=== PATIENT | female | born 1935 | race African-American/Black ===

== ENCOUNTER 2016-11-25 13:20 | Inpatient (IN) | payer BC ==
--- NOTE | ~2016-11-25 | IDS ---
Interim Discharge Summary [facility] [address] [place]. [address] NAME: YOLANDA ROSS : 35 STATUS : ADM IN PAT#: [id number] AGE: 81 ADM/REG DATE : 11/25/16 MR#: [id number] REPORT SERV DATE: 11/29/16 DICTATED BY: MAYRA ORELLANA DATE: 11/29/16 REPORT STATUS : Draft TRANSCRIBED BY: EDIL DATE: 11/29/16 ADMISSION DATE: 11/25/2016 DISCHARGE DATE: Date of service provided from 11/26/2016 to 11/29/2016. CURRENT MEDICAL PROBLEMS: 1. Status post left hip fracture, status post surgery per Dr. Moreira. 2. Hypertension, controlled. 3. Diabetes type 2, controlled. 4. Hypothyroidism, controlled. The patient is doing well. She is undergoing physical therapy, and she is waiting to be approved to go to [facility] for the inpatient rehabilitation. CONSULTANTS ON THE CASE: Dr. Moreira and nurse practitioner, Aileen. DISCHARGE MEDICATIONS: On discharge, the patient will continue her home medications, which include Norvasc 5 mg a day, levothyroxine 88 mcg daily, metformin 500 mg p.o. b.i.d., and Aileen also is going to address the Eliquis, which is started per Dr. Moreira for DVT prophylaxis, and Aileen will address duration of the Eliquis. My partner will see this patient starting tomorrow morning. MG/MODL Mayra Orellana M.D. / [id number] CC: Janelle Phillips M.D. Matthew Stephen Bernard, M.D.
--- NOTE | ~2016-11-25 | OP ---
Record Of Operation [facility] [address] [place]. [address] NAME: YOLANDA ROSS : 35 STATUS : ADM IN PAT#: [id number] AGE: 81 ADM/REG DATE : 11/25/16 MR#: [id number] REPORT SERV DATE: 11/27/16 DICTATED BY: ELMO MINER DATE: 11/27/16 REPORT STATUS : Draft TRANSCRIBED BY: MODL DATE: 11/27/16 DATE OF PROCEDURE: 11/26/2016 PREOPERATIVE DIAGNOSIS: Left displaced distal femoral neck fracture. POSTOPERATIVE DIAGNOSIS: Left displaced distal femoral neck fracture. PROCEDURE: Left hip hemiarthroplasty for femoral neck fracture, displaced. COMPLICATIONS: None. SPECIMENS: None. FINDINGS: Displaced femoral neck fracture and intact good articular cartilage of the acetabular cup. CONDITION UPON LEAVING THE OR: Stable to recovery room with good distal pulses. ANESTHESIA: Spinal. COUNTS RECORDED CORRECT: Yes. INDICATIONS FOR PROCEDURE: I gave the operative risks and benefits of surgical indications versus nonsurgical management, including but not limited to , myocardial infarction, pulmonary embolism, stroke, deep venous thrombosis, damage to nerves, damage to vessels, damage to other soft tissues, painful scar, unsightly scar, hardware wear, hardware breakage, periprosthetic fracture, dislocation, and leg length inequality. Possible need for revision surgery that could include further arthroplasty, arthrodesis, or amputation. We also discussed bleeding and infection. The patient verbalized understanding of these risks and wished to proceed to the operating room. PROCEDURE IN DETAIL: After the patient was identified in the preoperative holding area, all risks and benefits again were discussed with the patient. All questions answered satisfactorily. The patient wished to proceed with surgery. Correct side and site was identified, marked by me. We then proceeded to the operating room, where the patient was placed under general endotracheal anesthesia, supine on the regular OR bed. A Coburn catheter was placed. The patient was transferred to the lateral decubitus position with the operative hip up. Prepped and draped in sterile fashion. Correct antibiotics and time-out procedure observed by all in the room. We then began with a 10 cm standard posterolateral incision carried sharply down through the tissues and the fascia breezy was incised in line with the incision. Bovie cautery was utilized to gain hemostasis. The gluteus max fibers were split in line with their orientation giving good visualization of the posterolateral aspect of the hip. The piriformis was identified and taken down in its insertion as well as the remainder of the short external rotators in the posterior capsule. This was tagged and brought posterior to protect the sciatic nerve which had been identified prior to the previous stab. With that, the distal femur was easily dislocated leaving the remainder of Record Of Operation [facility] [address] [place]. [address] NAME: YOLANDA ROSS : 35 STATUS : ADM IN PAT#: [id number] AGE: 81 ADM/REG DATE : 11/25/16 MR#: [id number] REPORT SERV DATE: 11/27/16 DICTATED BY: ELMO MINER DATE: 11/27/16 REPORT STATUS : Draft TRANSCRIBED BY: EDIL DATE: 11/27/16 the head ball in the bony acetabulum. This was subsequently removed noting good articular cartilage at the femoral head, as well as the bony acetabulum. We elected to choose a hemiarthroplasty at this time for its decreased dislocation rate. With that, we copiously irrigated the bony acetabulum placed a proximal femoral elevator freshened a neck cut and began broaching and reaming for the AML stem. Once the size was settled upon, it was trialed noting to recreate her leg lengths and offset. With that, we extracted the trial components impacted our final AML stem in approximately 15 degrees of anteversion to match the patient's craig version, placed the final head ball on a clean dry Choi taper. After trials, again settling on a -3 neck with final implants in, she was reduced noting good suction fit within the bony acetabulum noting good recreation of soft tissue repair, coming to full extension and external rotation without impingement. There was no excessive tension on the sciatic nerve. Leg lengths were clinically equal on the table and the patient was able to flex to 90 degrees slight adduct and internally rotate to 75 degrees before beginning to sublux this head ball out of the bony acetabulum. With that, we felt the patient was stable. We copiously irrigated all of the soft tissues, closed the posterior capsule and short external rotators with number 1 Ethibond through bone tunnels, followed by two Quill in the fascia breezy, followed by skin belle and 2-0 Vicryl in the skin, followed by Monocryl and Steri-Strips. The patient was awakened and transferred to the recovery room in stable condition. MARLEN/EDIL Elmo Miner M.D. / [id number] CC: Janelle Phillips M.D.
--- NOTE | ~2016-11-25 | HP ---
History And Physical [place] [id number] [facility] [place]. [address] NAME: YOLANDA ROSS : 35 STATUS : ADM Rudy PAT#: [id number] AGE: 81 ADM/REG DATE : 11/25/16 MR#: [id number] REPORT SERV DATE: 11/25/16 DICTATED BY: CAYETANO JIMÉNEZ DATE: 11/25/16 REPORT STATUS : Draft TRANSCRIBED BY: MODL DATE: 11/25/16 DATE OF ADMISSION: 11/25/2016 CHIEF COMPLAINT: Pain in her left hip and back. HISTORY OF PRESENT ILLNESS: The patient is an 81-year-old female. She has a past medical history significant for hypertension, peripheral edema, and type 2 diabetes. She had a fall previously several weeks ago. It appears around 10/23 that she had x-rays at that time in the computer system showing no evidence of the pelvis or left hip abnormality. The patient was getting around at home on a walker with the assistance of her family, however, she suffered a second fall on Tuesday. It was more of a slide to ground. The patient was using the restroom with assistance of her family and she lost her balance and apparently she hit the shower door and then slid to the ground. Family does state, however, that it seemed her left leg was in an awkward position during that fall. She was assisted up, but since that time, it has really not been able to even transfer easily and has been unable to walk with assistance or her walker. She does state that neither fall was associated with syncope, palpitations, chest pain, or loss of conscious or head trauma. She made an appointment with her PCP today who did call stating they had evaluated her and were concerned about a possible hip fracture and she was sent over as a direct admit. Currently, the patient has been given some mild pain medications and is comfortable, although slightly hypertensive. PAST MEDICAL HISTORY: As covered above. PAST SURGICAL HISTORY: She has had a thyroid surgery, ulcer surgery, appendectomy, cholecystectomy, and hysterectomy. CURRENT MEDICATIONS: Per Dr. Calix's note: Chlorthalidone 25, irbesartan 150 levothyroxine 88, metformin 500. ALLERGIES: TO LORTAB. THE PATIENT ALSO STATES PERCOCET CAUSED HER CONFUSION. FAMILY HISTORY: Both parents are . Father had a CVA and mother had a blood clot. SOCIAL HISTORY: Nondrinker and nonsmoker. REVIEW OF SYSTEMS: She is currently reasonably comfortable without movement. She does state there is in addition to her hip some pain in her back and some swelling in her left lower leg. Again, she denies syncope, palpitations, chest pain, shortness of breath, nausea, or vomiting. Otherwise, a 10-point review of systems is negative. PHYSICAL EXAMINATION: VITAL SIGNS: BP 157/70, temp 98.6, pulse 95, respirations 18, sat 93%. GENERAL: She is awake, alert, appropriate; in no acute distress. HEENT: Normocephalic, atraumatic. Sclerae are nonicteric. History And Physical [address] [address] NAME: YOLANDA ROSS : 35 STATUS : ADM Rudy PAT#: [id number] AGE: 81 ADM/REG DATE : 11/25/16 MR#: [id number] REPORT SERV DATE: 11/25/16 DICTATED BY: CAYETANO JIMÉNEZ DATE: 11/25/16 REPORT STATUS : Draft TRANSCRIBED BY: EDIL DATE: 11/25/16 NECK: Supple. HEART: Regular rate and rhythm. LUNGS: Clear to auscultation. ABDOMEN: Nontender and nondistended. EXTREMITIES: Her left lower extremity does appear swollen. It is nontender to palpation. She does have pain with bending at the knee and rotation of the hip. The left leg does appear a bit shorter. She is also complaining of back pain. LABORAORY DATA: Pending, none to review. ASSESSMENT: Fall with increasing mobility, rule out fracture. Chronic medical problems as listed above. PLAN: The patient has been admitted. We will do L-spine, hip, pelvis, and left leg. We will also do an ultrasound to rule out DVT as she has been immobile for some time. We will consult Orthopedics if positive. The patient requests a Coburn, we will defer until her x- rays were complete. Hold her n.p.o. until assessment is complete. Sliding scale insulin for her blood sugars and home meds. CECILYF/MODL Cayetano Jiménez M.D. / [id number] CC: Janelle Deleon M.D.
--- NOTE | ~2016-11-25 | DS ---
Discharge Summary [facility] [address] [place]. [address] NAME: YOLANDA ROSS : 35 STATUS : DIS IN PAT#: [id number] AGE: 81 ADM/REG DATE : 11/25/16 MR#: [id number] REPORT SERV DATE: 12/03/16 DICTATED BY: GREGORIA DEMARCO DATE: 12/02/16 REPORT STATUS : Draft TRANSCRIBED BY: MODLaina DATE: 12/02/16 ADMISSION DATE: 11/25/2016 DISCHARGE DATE: 12/02/2016 CONSULTANTS: Seferino Moreira M.D., Orthopedic Surgery. DISCHARGE DIAGNOSES: 1. Fall with left hip traumatic fracture, requiring surgical repair. 2. Hypertension. 3. Acute blood loss anemia due to fracture and surgery. 4. Diabetes mellitus type 2 with A1c 6.4%. 5. Old stroke. 6. History of vitamin D deficiency. 7. Hypothyroidism, on supplement Synthroid. 8. Osteoporosis. HISTORY: This patient reportedly had a fall on 10/23/2016, no fracture. She was doing fairly well, but then had another fall approximately 11/21/2016, was unable to walk after that, was brought to the emergency room on 11/25/2016 and found to have a displaced fracture of the left femoral neck. She was referred to our team for inpatient admission and we consulted Orthopedics. The patient underwent successful open reduction and internal fixation of that left hip fracture on 11/27/2016. Postprocedure, the patient was initiated on Eliquis per the request of the orthopedic surgeon. The patient has acute blood loss anemia which is expected with fracture and surgery. Her hemoglobin on admission 11.3, by discharge 8.9. She is on Eliquis for the DVT prophylaxis which should be for 35 days total, which will end on 12/29/2016. The patient is felt to need inpatient rehab and those arrangements have been made at this time. She is eating well. Cooperative. No particular discomfort other than some hip pain when she walks with therapy. DISCHARGE MEDICATIONS: 1. Eliquis 2.5 mg b.i.d. through 12/29/2016. 2. Colace 100 mg b.i.d. 3. Iron sulfate 300 mg daily. 4. NovoLog level 1 a.c. and h.s. 5. Glucophage 500 mg b.i.d. (her creatinine is 0.6 on 12/01/2016). 6. Synthroid 88 mcg daily (TSH is 1.68 on 11/25/2016). 7. Avapro 150 mg daily which is new and started here in the hospital as per recent recommendation by her PCP. 8. Tylenol 650 mg q.4 hours p.r.n. mild pain. 9. Mylanta p.r.n. indigestion. 10.Dulcolax suppository or tablet p.r.n. constipation. 11.Glucose tablets p.r.n. hypoglycemia. Discharge Summary [facility] [address] [place]. [address] NAME: YOLANDA ROSS : 35 STATUS : DIS IN PAT#: [id number] AGE: 81 ADM/REG DATE : 11/25/16 MR#: [id number] REPORT SERV DATE: 12/03/16 DICTATED BY: GREGORIA DEMARCO DATE: 12/02/16 REPORT STATUS : Draft TRANSCRIBED BY: MODL DATE: 12/02/16 12.[employer] 5/325 mg one or two every 4 hours p.r.n. pain. 13.Milk of magnesia p.r.n. constipation. 14.MiraLAX p.r.n. constipation. 15.Tramadol 50 mg q.4 hours p.r.n. moderate pain. 16.Her Norvasc was stopped per recent recommendation by her PCP. 17.Chlorthalidone 25 mg daily started by her PCP on 11/25/2016. 18.Zofran 4 mg q.i.d. p.r.n. nausea. We are requesting that the rehab perform CBC and BMP weekly more often per their judgment. I spent 20 minutes today with the patient and with her discharge plan. RSG/ROSCOEL Gregoria Demarco M.D. / [id number] CC: Janelle Abdul M.D. [facility] Seferino Moreira M.D.
--- NOTE | ~2016-11-25 | CN ---
Consultation Report [facility] [address] [place]. [address] NAME: YOLANDA ROSS : 35 STATUS : ADM IN PAT#: [id number] AGE: 81 ADM/REG DATE : 11/25/16 MR#: [id number] REPORT SERV DATE: 11/27/16 DICTATED BY: ELMO MINER DATE: 11/27/16 REPORT STATUS : Draft TRANSCRIBED BY: MODL DATE: 11/27/16 CONSULTATION DATE OF CONSULTATION: 11/26/2016 CHIEF COMPLAINT: Left hip pain. HISTORY OF PRESENT ILLNESS: This pleasant 81-year-old female, who had previously been evaluated and treated for vertigo by her primary care physician, Dr. Blake and had prior stroke, had a same-level of fall in her home, noted to have left hip pain, and she was therefore brought to the [facility] Emergency Room, where she was noted to have a left displaced femoral neck fracture. I was subsequently consulted for evaluation and management. PAST SURGICAL HISTORY: Includes thyroid, appendectomy, cholecystectomy, hysterectomy. PAST MEDICAL HISTORY: Stroke, hypertension, peripheral edema, type 2 diabetes. SOCIAL HISTORY: No alcohol or tobacco. She is an ambulator with a walker. Has good supportive family with the daughter present. CURRENT MEDICATIONS: Chlorthalidone, irbesartan, levothyroxine, metformin. ALLERGIES: TO LORTAB AND PERCOCET, STATING CONFUSION. FAMILY HISTORY: Both parents , significant for stroke and clot. REVIEW OF SYSTEMS: No chest pain, shortness of breath, nausea, vomiting. Positive for vertigo and dizziness, but that is a chronic thing. She denies syncope on this fall and negative for full 14-point systematic review. PHYSICAL EXAMINATION: GENERAL: I see a lady, who looks her stated age. AAO x3. Pleasant, cooperative with exam and in no apparent distress. She is supine on her stretcher in the preoperative holding area. VITAL SIGNS: Reviewed and on the monitor and are acceptable. HEENT: Pupils are equally round, reactive to light and accommodation. Extraocular muscles intact. CHEST: Clear to auscultation bilaterally. HEART: Regular rate and rhythm. ABDOMEN: Soft, nontender, nondistended. EXTREMITIES: Left lower extremity is shortened, internally rotated, but good distal pulses. No peripheral edema. Good sensation and she is able to flex and extend her toes with 5/5 strength. She is sensate. Bilateral upper extremities and right lower extremity showed Consultation Report [place] [address] [address] NAME: YOLANDA ROSS : 35 STATUS : ADM IN PAT#: [id number] AGE: 81 ADM/REG DATE : 11/25/16 MR#: [id number] REPORT SERV DATE: 11/27/16 DICTATED BY: ELMO MINER DATE: 11/27/16 REPORT STATUS : Draft TRANSCRIBED BY: EDIL DATE: 11/27/16 good distal pulses. No peripheral edema. Full range of motion. No skin breaks. RADIOGRAPHS: Reveal a left displaced femoral neck fracture. PLAN: Plan will be for left hip arthur versus total hip arthroplasty. MARLEN/EDIL Elmo Miner M.D. / [id number] CC: Janelle Phillips M.D.
[~2016-11-25 13:20] MED LIST: ATEN25 PO; ATEN50 PO; GLUCPH8 PO; LEVOTHYROXIN75 MCG PO; MAXZIDE PO; NEXIUM40 PO; NORV10 PO
[2016-11-25 16:33] LABS: BASOPHILS 0.8 %; BASOPHILS ABSOLUTE 0.04 10/3/uL (0.0-0.16); EOSINOPHILS 2.1 %; EOSINOPHILS ABSOLUTE 0.11 10/3/uL (0.0-0.53); HEMATOCRIT 36.5 % (36.0-48.0); HEMOGLOBIN 11.3 g/dL (12.0-16.0); IMMATURE GRANULOCYTES 0.4 %; IMMATURE GRANULOCYTES ABSOLUTE 0.02 10/3/uL (0.0-0.11); LYMPHOCYTES 17.3 %; MEAN CORPUSCULAR HEMOGLOB 27.5 pg (26.0-34.0); MEAN CORPUSCULAR VOLUME 88.8 fL (80-100); MONOCYTES 11.9 %; MONOCYTES ABSOLUTE 0.62 10/3/uL (0.21-1.20); NEUTROPHILS 67.5 %; NEUTROPHILS ABSOLUTE 3.51 10/3/uL (2.02-8.40); PLATELET COUNT 222 10/3/uL (150-400); RBC DISTRIBUTION WIDTH 13.4 % (12.0-16.0); RED CELL COUNT 4.11 10/6/uL (4.0-5.6); WHITE BLOOD CELLS 5.2 10/3/uL (4.5-10.5)
[2016-11-25 16:34] LABS: MANUAL DIFF NO %
[2016-11-25] MEDS ORDERED: GLUCPH PO (16:40)
[2016-11-25] MEDS ORDERED: SYN88 PO (16:41)
[2016-11-25] MEDS ORDERED: EXCEDRIN EXTRA1 EACH PO (16:41)
[2016-11-25] MEDS ORDERED: NORV5 PO (16:41)
[2016-11-25 16:55] LABS: CALCIUM, SERUM 8.5 MG/DL (8.5-10.4); CHLORIDE, SERUM 104 MMOL/L (96-112); CO2 (CARBON DIOXIDE) 26 MMOL/L (24-34); CREATININE 0.45 MG/DL (0.55-1.02); GFR AFRICAN AMERICAN 109 ML/MIN (>=60); GFR NON AFRICAN AMERICAN 94 ML/MIN (>=60); SGOT(AST) 28 U/L (5-40); SGPT(ALT) 18 U/L (5-65); SODIUM, SERUM 140 MMOL/L (135-148); TOTAL BILIRUBIN 0.3 MG/DL (0-1.2); TOTAL PROTEIN 7.2 G/DL (6.0-8.5)
[2016-11-25 16:56] LABS: A/G RATIO 0.7 (0.7-1.9); ALBUMIN 2.9 G/DL (3.5-5.0); ALKALINE PHOSPHATASE 137 U/L (45-117); BUN (BLOOD UREA NITROGEN) 9 MG/DL (6-23); GLOBULIN 4.3 G/DL (2.5-4.1); GLUCOSE, SERUM 104 MG/DL (60-99); POTASSIUM, SERUM 2.7 MMOL/L (3.5-5.3)
[2016-11-26 04:10] LABS: BASOPHILS 0.7 %; BASOPHILS ABSOLUTE 0.03 10/3/uL (0.0-0.16); EOSINOPHILS 2.5 %; EOSINOPHILS ABSOLUTE 0.11 10/3/uL (0.0-0.53); HEMATOCRIT 33.1 % (36.0-48.0); HEMOGLOBIN 10.2 g/dL (12.0-16.0); IMMATURE GRANULOCYTES 0.2 %; IMMATURE GRANULOCYTES ABSOLUTE 0.01 10/3/uL (0.0-0.11); LYMPHOCYTES 26.4 %; LYMPHOCYTES ABSOLUTE 1.18 10/3/uL (0.67-4.30); MEAN CORPUS HGB CONC 30.8 g/dL (32.0-36.0); MEAN CORPUSCULAR HEMOGLOB 27.4 pg (26.0-34.0); MEAN PLATELET VOLUME 9.1 fL (9.2-13.0); MONOCYTES 15.4 %; MONOCYTES ABSOLUTE 0.69 10/3/uL (0.21-1.20); NEUTROPHILS 54.8 %; NEUTROPHILS ABSOLUTE 2.45 10/3/uL (2.02-8.40); PLATELET COUNT 256 10/3/uL (150-400); RBC DISTRIBUTION WIDTH 13.2 % (12.0-16.0); RED CELL COUNT 3.72 10/6/uL (4.0-5.6); WHITE BLOOD CELLS 4.5 10/3/uL (4.5-10.5)
[2016-11-26 04:17] LABS: INTERNATIONAL NORMAL RATI 1.1 UNITS (-); MANUAL DIFF NO %; PARTIAL THROMBO TIME 33.4 SEC (22.5-37.2); PROTIME (NOT ORD) 14.5 SEC (12.0-14.5)
[2016-11-26 04:19] LABS: A/G RATIO 0.7 (0.7-1.9); ALBUMIN 2.6 G/DL (3.5-5.0); ALKALINE PHOSPHATASE 128 U/L (45-117); BUN (BLOOD UREA NITROGEN) 7 MG/DL (6-23); CALCIUM, SERUM 8.1 MG/DL (8.5-10.4); CHLORIDE, SERUM 105 MMOL/L (96-112); CO2 (CARBON DIOXIDE) 29 MMOL/L (24-34); GFR AFRICAN AMERICAN 105 ML/MIN (>=60); GFR NON AFRICAN AMERICAN 91 ML/MIN (>=60); GLOBULIN 3.8 G/DL (2.5-4.1); GLUCOSE, SERUM 109 MG/DL (60-99); POTASSIUM, SERUM 2.9 MMOL/L (3.5-5.3); SGOT(AST) 22 U/L (5-40); SGPT(ALT) 17 U/L (5-65); SODIUM, SERUM 144 MMOL/L (135-148); TOTAL BILIRUBIN 0.4 MG/DL (0-1.2); TOTAL PROTEIN 6.4 G/DL (6.0-8.5)
[2016-11-26 04:46] LABS: ASCORBIC ACID (UR NOT ORDER) NEG (NEG); BILIRUBIN, URINE NEGATIVE (NEG); KETONE, URINE NEGATIVE (NEG); LEUKOCYTE ESTERASE(NOT OR NEG (NEG); WBC (NOT ORDERED) (RFLEX) 1 (0-5)
[2016-11-27 05:12] LABS: BASOPHILS 0.6 %; BASOPHILS ABSOLUTE 0.04 10/3/uL (0.0-0.16); EOSINOPHILS 2.1 %; EOSINOPHILS ABSOLUTE 0.14 10/3/uL (0.0-0.53); HEMATOCRIT 31.3 % (36.0-48.0); HEMOGLOBIN 9.5 g/dL (12.0-16.0); IMMATURE GRANULOCYTES 0.4 %; IMMATURE GRANULOCYTES ABSOLUTE 0.03 10/3/uL (0.0-0.11); LYMPHOCYTES 17.1 %; LYMPHOCYTES ABSOLUTE 1.15 10/3/uL (0.67-4.30); MANUAL DIFF NO %; MEAN CORPUS HGB CONC 30.4 g/dL (32.0-36.0); MEAN CORPUSCULAR HEMOGLOB 26.9 pg (26.0-34.0); MEAN CORPUSCULAR VOLUME 88.7 fL (80-100); MEAN PLATELET VOLUME 9.5 fL (9.2-13.0); MONOCYTES 10.4 %; NEUTROPHILS 69.4 %; NEUTROPHILS ABSOLUTE 4.65 10/3/uL (2.02-8.40); PLATELET COUNT 244 10/3/uL (150-400); RBC DISTRIBUTION WIDTH 13.4 % (12.0-16.0); RED CELL COUNT 3.53 10/6/uL (4.0-5.6); WHITE BLOOD CELLS 6.7 10/3/uL (4.5-10.5)
[2016-11-27 05:32] LABS: BUN (BLOOD UREA NITROGEN) 8 MG/DL (6-23); CALCIUM, SERUM 7.7 MG/DL (8.5-10.4); CHLORIDE, SERUM 103 MMOL/L (96-112); CO2 (CARBON DIOXIDE) 28 MMOL/L (24-34); CREATININE 0.56 MG/DL (0.55-1.02); GFR AFRICAN AMERICAN 101 ML/MIN (>=60); GFR NON AFRICAN AMERICAN 87 ML/MIN (>=60); GLUCOSE, SERUM 130 MG/DL (60-99); SODIUM, SERUM 140 MMOL/L (135-148)
[2016-11-28 06:18] LABS: BASOPHILS 0.3 %; BASOPHILS ABSOLUTE 0.02 10/3/uL (0.0-0.16); EOSINOPHILS 2.3 %; EOSINOPHILS ABSOLUTE 0.15 10/3/uL (0.0-0.53); HEMOGLOBIN 9.3 g/dL (12.0-16.0); IMMATURE GRANULOCYTES 0.6 %; IMMATURE GRANULOCYTES ABSOLUTE 0.04 10/3/uL (0.0-0.11); LYMPHOCYTES 16.3 %; LYMPHOCYTES ABSOLUTE 1.06 10/3/uL (0.67-4.30); MANUAL DIFF NO %; MEAN CORPUSCULAR HEMOGLOB 27.2 pg (26.0-34.0); MEAN CORPUSCULAR VOLUME 87.7 fL (80-100); MEAN PLATELET VOLUME 9.5 fL (9.2-13.0); MONOCYTES 10.1 %; MONOCYTES ABSOLUTE 0.66 10/3/uL (0.21-1.20); NEUTROPHILS 70.4 %; NEUTROPHILS ABSOLUTE 4.59 10/3/uL (2.02-8.40); PLATELET COUNT 251 10/3/uL (150-400); RBC DISTRIBUTION WIDTH 13.1 % (12.0-16.0); RED CELL COUNT 3.42 10/6/uL (4.0-5.6); WHITE BLOOD CELLS 6.5 10/3/uL (4.5-10.5)
[2016-11-28 06:31] LABS: BUN (BLOOD UREA NITROGEN) 8 MG/DL (6-23); CALCIUM, SERUM 7.9 MG/DL (8.5-10.4); CHLORIDE, SERUM 102 MMOL/L (96-112); CO2 (CARBON DIOXIDE) 28 MMOL/L (24-34); CREATININE 0.45 MG/DL (0.55-1.02); GFR AFRICAN AMERICAN 109 ML/MIN (>=60); GFR NON AFRICAN AMERICAN 94 ML/MIN (>=60); GLUCOSE, SERUM 127 MG/DL (60-99); POTASSIUM, SERUM 3.4 MMOL/L (3.5-5.3); SODIUM, SERUM 139 MMOL/L (135-148)
[2016-11-29 05:05] LABS: BASOPHILS 0.4 %; BASOPHILS ABSOLUTE 0.03 10/3/uL (0.0-0.16); EOSINOPHILS 1.8 %; EOSINOPHILS ABSOLUTE 0.14 10/3/uL (0.0-0.53); HEMATOCRIT 29.1 % (36.0-48.0); IMMATURE GRANULOCYTES 0.5 %; IMMATURE GRANULOCYTES ABSOLUTE 0.04 10/3/uL (0.0-0.11); LYMPHOCYTES 15.5 %; LYMPHOCYTES ABSOLUTE 1.22 10/3/uL (0.67-4.30); MEAN CORPUS HGB CONC 30.9 g/dL (32.0-36.0); MEAN CORPUSCULAR HEMOGLOB 27.2 pg (26.0-34.0); MEAN CORPUSCULAR VOLUME 87.9 fL (80-100); MEAN PLATELET VOLUME 9.5 fL (9.2-13.0); MONOCYTES 9.9 %; MONOCYTES ABSOLUTE 0.78 10/3/uL (0.21-1.20); NEUTROPHILS 71.9 %; NEUTROPHILS ABSOLUTE 5.64 10/3/uL (2.02-8.40); PLATELET COUNT 289 10/3/uL (150-400); RBC DISTRIBUTION WIDTH 13.3 % (12.0-16.0); RED CELL COUNT 3.31 10/6/uL (4.0-5.6); WHITE BLOOD CELLS 7.9 10/3/uL (4.5-10.5)
[2016-11-29 05:13] LABS: MANUAL DIFF NO %
[2016-11-29 05:15] LABS: BUN (BLOOD UREA NITROGEN) 9 MG/DL (6-23); CALCIUM, SERUM 8.1 MG/DL (8.5-10.4); CHLORIDE, SERUM 101 MMOL/L (96-112); CO2 (CARBON DIOXIDE) 30 MMOL/L (24-34); CREATININE 0.48 MG/DL (0.55-1.02); GFR AFRICAN AMERICAN 107 ML/MIN (>=60); GFR NON AFRICAN AMERICAN 92 ML/MIN (>=60); GLUCOSE, SERUM 139 MG/DL (60-99); POTASSIUM, SERUM 3.9 MMOL/L (3.5-5.3); SODIUM, SERUM 142 MMOL/L (135-148)
[2016-11-30 04:27] LABS: BASOPHILS 0.6 %; BASOPHILS ABSOLUTE 0.03 10/3/uL (0.0-0.16); EOSINOPHILS 3.5 %; EOSINOPHILS ABSOLUTE 0.19 10/3/uL (0.0-0.53); HEMATOCRIT 29.4 % (36.0-48.0); IMMATURE GRANULOCYTES 0.7 %; IMMATURE GRANULOCYTES ABSOLUTE 0.04 10/3/uL (0.0-0.11); LYMPHOCYTES 17.9 %; LYMPHOCYTES ABSOLUTE 0.96 10/3/uL (0.67-4.30); MANUAL DIFF NO %; MEAN CORPUS HGB CONC 30.6 g/dL (32.0-36.0); MEAN CORPUSCULAR HEMOGLOB 27.1 pg (26.0-34.0); MEAN CORPUSCULAR VOLUME 88.6 fL (80-100); MEAN PLATELET VOLUME 8.9 fL (9.2-13.0); MONOCYTES 12.3 %; MONOCYTES ABSOLUTE 0.66 10/3/uL (0.21-1.20); NEUTROPHILS ABSOLUTE 3.48 10/3/uL (2.02-8.40); PLATELET COUNT 322 10/3/uL (150-400); RBC DISTRIBUTION WIDTH 13.4 % (12.0-16.0); RED CELL COUNT 3.32 10/6/uL (4.0-5.6); WHITE BLOOD CELLS 5.4 10/3/uL (4.5-10.5)
[2016-11-30 04:48] LABS: BUN (BLOOD UREA NITROGEN) 10 MG/DL (6-23); CALCIUM, SERUM 8.1 MG/DL (8.5-10.4); CHLORIDE, SERUM 101 MMOL/L (96-112); CO2 (CARBON DIOXIDE) 32 MMOL/L (24-34); CREATININE 0.55 MG/DL (0.55-1.02); GFR AFRICAN AMERICAN 102 ML/MIN (>=60); GFR NON AFRICAN AMERICAN 88 ML/MIN (>=60); GLUCOSE, SERUM 131 MG/DL (60-99); POTASSIUM, SERUM 4.4 MMOL/L (3.5-5.3); SODIUM, SERUM 139 MMOL/L (135-148)
[2016-12-01 04:38] LABS: HEMATOCRIT 28.6 % (36.0-48.0); HEMOGLOBIN 8.9 g/dL (12.0-16.0)
[2016-12-01 04:47] LABS: BUN (BLOOD UREA NITROGEN) 10 MG/DL (6-23); CALCIUM, SERUM 8.4 MG/DL (8.5-10.4); CHLORIDE, SERUM 101 MMOL/L (96-112); CO2 (CARBON DIOXIDE) 31 MMOL/L (24-34); GFR AFRICAN AMERICAN 99 ML/MIN (>=60); GFR NON AFRICAN AMERICAN 85 ML/MIN (>=60); GLUCOSE, SERUM 135 MG/DL (60-99); POTASSIUM, SERUM 4.3 MMOL/L (3.5-5.3); SODIUM, SERUM 139 MMOL/L (135-148)
== END 2016-12-02 13:06 | DRG 470 ==
LOC: 4SO 13:20 → SDC/OF 11-26 10:46 → 3SO 11-26 12:49
PROVIDERS: Hospitalist; Internal Medicine; Nurse Practitioner; Orthopaedic Surgery
PROC: 0SRB02Z Replacement of Left Hip Joint with Metal on Polyethylene Synthetic Substitute, Open Approach (ICD-10-PCS; principal; 2016-11-26 09:15)
DX: M80.052A Age-related osteoporosis with current pathological fracture, left femur, initial encounter for fracture (principal); E11.9 Type 2 diabetes mellitus without complications; I10 Essential (primary) hypertension; D62 Acute posthemorrhagic anemia; S72.002A Fracture of unspecified part of neck of left femur, initial encounter for closed fracture; E03.9 Hypothyroidism, unspecified
CPT/HCPCS: 36415; 72100; 73522; 73590-LT; 80048; 80053; 81001; 82962; 83036; 83735; 84132; 84443; 85014; 85018; 85025; 85610; 85730; 86850; 86900; 86901; 86920; 87641; 88305; 88311; 93005; 93970; 97110-GP; 97116-GP; 97161-GP; 97165-GO; 97530-GP; 97535-GO; A9270-GY; C1776; J0690; J1200; J1885; J2250; J2274; J2370; J2405; J2795; J3010